=== PATIENT | female | born 1995 | race Caucasian/White ===

== ENCOUNTER 2016-07-08 14:11 | Emergency (ER) | payer OTHER ==
[2016-07-08 15:09] LABS: PH,URINE 6.5 (5.0-8.0); SPECIFIC GRAVITY 1.015 (1.001-1.030); URINE BILIRUBIN NEGATIVE (NEGATIVE); URINE BLOOD NEGATIVE (NEGATIVE); URINE GLUCOSE (UA) NEGATIVE (NEGATIVE); URINE LEUKOCYTE ESTERASE NEGATIVE (NEGATIVE); URINE NITRITE NEGATIVE (NEGATIVE); URINE PROTEIN NEGATIVE (NEGATIVE); URINE UROBILINOGEN NORMAL (0-1 mg/dl)
[2016-07-08 15:11] LABS: URINE APPEARANCE CLEAR; URINE COLOR DARK YELLOW
[2016-07-08 15:13] LABS: HCG,QUALITATIVE URINE NEGATIVE
--- NOTE | 2016-07-08 15:49 | RAD ---
ABDOMEN FLAT AND UPRIGHT HISTORY: Abdomen pain for 3 days with history of a urinary tract infection. COMPARISONS: None. FINDINGS: Supine and upright views of the abdomen demonstrate air within nondilated large bowel. The abdominal bowel gas pattern is unremarkable. There is evidence of prior cholecystectomy. Numerous punctate calcific foci are seen within the right upper quadrant which may reflect hepatic calcifications. The osseous structures are intact. The lung bases are clear. There is an intrauterine device projecting within the central aspect of the pelvis. IMPRESSION: 1. An unremarkable abdominal bowel gas pattern. No evidence of free intraperitoneal air is observed. 2. Numerous calcific foci suggested within the right upper quadrant which may reflect hepatic parenchymal calcifications. 3. Prior cholecystectomy. 4. An intrauterine device projecting over the central pelvis.
[2016-07-09 14:51] LABS: CHLAMYDIA BD Negative (Negative); N.GONORRHOEAE BD Negative (Negative); SOURCE Urine (())
== END 2016-07-08 16:27 | disposition home or self-care (01) ==
LOC: ED 14:11
DX: R10.9 Unspecified abdominal pain (principal); K58.9 Irritable bowel syndrome, unspecified; N28.9 Disorder of kidney and ureter, unspecified; Z87.440 Personal history of urinary (tract) infections